=== PATIENT | female | born 1985 | race Two or more races ===

== ENCOUNTER 2020-03-05 10:30 | Inpatient (IN) | payer OTHER ==
[~2020-03-05] VITALS: Ht 160 cm; Wt 57.2 kg
[~2020-03-05 10:30] MED LIST: TYLENOL-CODEINE1 TAB PO
[2020-03-14] MEDS ORDERED: OXYC1TAB9 PO (07:50)
== END 2020-03-14 09:04 | disposition home or self-care (01) | DRG 743 ==
LOC: O/R 03-12 05:50 → OB/GYN 03-12 09:00
PROVIDERS: ADMIT Obstetrics & Gynecology Gynecology; ATTEND Obstetrics & Gynecology Gynecology
PROC: 0UB70ZZ Excision of Bilateral Fallopian Tubes, Open Approach (ICD-10-PCS; 2020-03-12)
PROC: 0UT90ZZ Resection of Uterus, Open Approach (ICD-10-PCS; principal; 2020-03-12 09:00)
DX: N72 Inflammatory disease of cervix uteri (principal); D25.1 Intramural leiomyoma of uterus; D25.0 Submucous leiomyoma of uterus; D25.2 Subserosal leiomyoma of uterus; N80.2 Endometriosis of fallopian tube; N83.8 Other noninflammatory disorders of ovary, fallopian tube and broad ligament; Z20.828 Contact with and (suspected) exposure to other viral communicable diseases